=== PATIENT | male | born 1945 | race African-American/Black ===

== ENCOUNTER 2019-04-23 07:00 | Inpatient (IN) | payer MEDICARE, MEDICAID ==
[~2019-04-23] VITALS: Ht 195.6 cm; Wt 125.6 kg
[2019-04-23 08:45] LABS: CLARITY URINE CLEAR (CLEAR); COLOR URINE YELLOW (YELLOW); KETONES URINE NEGATIVE (NEGATIVE); LEUKOCYTE ESTERASE URINE TRACE (NEGATIVE); NITRITE URINE NEGATIVE (NEGATIVE); OCCULT BLOOD URINE 1+ (NEGATIVE); PH URINE 5.5 (4.5-8.0); PROTEIN URINE NEGATIVE (NEGATIVE); SPECIFIC GRAVITY URINE 1.012 (1.005-1.030)
[2019-04-23] MEDS ORDERED: TRANEXAMIC ACID 1,000 MG/10 ML IV ONE (09:45)
[2019-04-23] MEDS ORDERED: TRANEXAMIC ACID 1,000 MG in SODIUM CHLORIDE 0.9% 100 ML IV SCH (10:00)
[2019-04-23 10:35] LABS: CLARITY URINE CLEAR (CLEAR); COLOR URINE YELLOW (YELLOW); KETONES URINE NEGATIVE (NEGATIVE); LEUKOCYTE ESTERASE URINE 1+ (NEGATIVE); NITRITE URINE NEGATIVE (NEGATIVE); OCCULT BLOOD URINE 3+ (NEGATIVE); PROTEIN URINE NEGATIVE (NEGATIVE); SPECIFIC GRAVITY URINE 1.016 (1.005-1.030)
[2019-04-23] MEDS ORDERED: MIDAZOLAM HCL 2 MG/2 ML VIAL ONE (11:08)
[2019-04-23] MEDS ORDERED: FENTANYL CITRATE/PF 50MCG/ML 2ML VIAL ONE (11:08)
[2019-04-23] MEDS ORDERED: LACTATED RINGERS 500 ML IV SCH (11:35)
[2019-04-23] MEDS ORDERED: METHYLENE BLUE 50 MG/10 ML AMP IV ONE (11:59)
[2019-04-23] MEDS ORDERED: BUPIVACAINE HCL/EPINEPHRINE/PF 0.5%/0.0005 10ML ONE (11:59)
[2019-04-23] MEDS ORDERED: MORPHINE SULFATE/PF 1MG/ML 10ML AMP ONE (11:59)
[2019-04-23] MEDS ORDERED: GENTAMICIN SULF 40MG/ML 2ML VIAL ONE (12:00)
[2019-04-23] MEDS ORDERED: EPINEPHRINE 1:1000 1 MG/ML AMP ONE (12:00)
[2019-04-23] MEDS ORDERED: BACITRACIN 50,000 UNITS/VIAL ONE (12:01)
[2019-04-23] MEDS ORDERED: PROPOFOL 10MG/ML 100ML 0 ML IV ONE (12:17)
[2019-04-23] MEDS ORDERED: VANCOMYCIN HCL 1 GM/VIAL ONE (12:35)
[2019-04-23] MEDS ORDERED: PROPOFOL 200MG/20ML VIAL IV ONE ×2 (12:37→13:35)
[2019-04-23] MEDS ORDERED: ROCURONIUM BROMIDE 10MG/ML VIAL 5ML IV ONE ×2 (12:37→13:36)
[2019-04-23] MEDS ORDERED: METF-414 PO (13:30)
[2019-04-23] MEDS ORDERED: APIX5TAB PO (13:30)
[2019-04-23] MEDS ORDERED: AMLO10TA80 PO (13:30)
[2019-04-23] MEDS ORDERED: FERR325T6 PO (13:30)
[2019-04-23] MEDS ORDERED: BACL-141 PO (13:30)
[2019-04-23] MEDS ORDERED: HYDR-4009 PO (13:30)
[2019-04-23] MEDS ORDERED: CARV3.1242 PO (13:30)
[2019-04-23] MEDS ORDERED: FAMO20TA8 PO (13:30)
[2019-04-23] MEDS ORDERED: CHOL200077 PO (13:30)
[2019-04-23] MEDS ORDERED: ROSU5TAB PO (13:30)
[2019-04-23] MEDS ORDERED: VITA1TAB20 PO (13:32)
[2019-04-23] MEDS ORDERED: HYDROMORPHONE HCL/PF 2MG/ML (OR) ONE (13:37)
[2019-04-23] MEDS ORDERED: ACETAMINOPHEN 325MG TABLET PO PRN (16:45)
[2019-04-23] MEDS ORDERED: DIPHENHYDRAMINE 50MG/ML VIAL IM PRN (16:45)
[2019-04-23] MEDS ORDERED: ZOLPIDEM TARTRATE 5MG TABLET PO PRN (16:45)
[2019-04-23] MEDS ORDERED: HYDROCODONE/ACETAMINOPHEN 10/325MG TABLET PO PRN (16:45)
[2019-04-23] MEDS ORDERED: MAGNESIUM HYDROXIDE 400MG/5ML 30ML UDC PO PRN (16:45)
[2019-04-23] MEDS ORDERED: ONDANSETRON HCL 4MG/2ML INJ IV PRN (16:45)
[2019-04-23] MEDS ORDERED: ONDANSETRON INJ IV PRN (18:00)
[2019-04-23] MEDS ORDERED: NALOXONE INJ IV PRN (18:00)
[2019-04-23] MEDS ORDERED: DIPHENHYDRAMINE INJ IV PRN (18:00)
[2019-04-23] MEDS ORDERED: HYDROMORPHONE PCA 10MG/50ML IV PRN (18:00)
[2019-04-23 20:00] VITALS: BP 121/68
[2019-04-23] MEDS ORDERED: PNEUMOCOCCAL 23-VAL P-SAC VAC 0.5 ML IM ONE (20:30)
[2019-04-23 20:35] VITALS: BP 121/68
[2019-04-23] MEDS: CEFAZOLIN 2,000 MG in DEXT 5% WATER 100 ML IV SCH (23:12)
[2019-04-24] VITALS (7 sets, daily range): BP systolic 112–127; BP diastolic 63–82
[2019-04-24] MEDS: HYDROCODONE/ACETAMINOPHEN 10/325MG TABLET PO PRN ×2 (02:14→08:22)
[2019-04-24] MEDS: CEFAZOLIN 2,000 MG in DEXT 5% WATER 100 ML IV SCH (06:06)
[2019-04-24 06:50] LABS: BASOPHILS % 0.4 % (0.0-2.0); EOSINOPHILS % 1.3 % (0.0-5.0); HEMATOCRIT. 44.3 % (42.0-52.0); HEMOGLOBIN. 14.6 g/dL (14.0-18.0); LYMPHOCYTES % 13.8 % (20.0-50.0); MEAN CORPUSCULAR HEMOGLOBIN 29.9 pg (28.0-32.0); MEAN CORPUSCULAR VOLUME 90.8 fL (80.0-94.0); MEAN PLATELET VOLUME 11.6 fl (7.4-10.4); MONOCYTES % 13.3 % (2.0-8.0); NEUTROPHILS % 71.2 % (40.0-76.0); PLATELET 104 x1000/uL (130-400); RED BLOOD CELL COUNT 4.89 mill/uL (4.7-6.1); RED CELL DISTRIBUTION WIDTH 15.6 % (11.6-14.6)
[2019-04-24 07:36] LABS: CHLORIDE 110 mEq/L (98-107)
[2019-04-24] MEDS: DOCUSATE SODIUM 100MG CAPSULE PO SCH ×2 (08:26→17:26)
[2019-04-24] MEDS ORDERED: ENOXAPARIN 30MG/0.3ML SYR SUBCUT SCH (09:00)
[2019-04-24] MEDS ORDERED: SODIUM CHLORIDE 0.9% 1,000 ML IV ONE (10:30)
[2019-04-24] MEDS: AMLODIPINE 10MG TABLET PO SCH (12:30)
[2019-04-24] MEDS: METFORMIN HCL 500MG TABLET PO SCH (14:08)
[2019-04-24] MEDS: APIXABAN 5 MG TABLET PO SCH (17:27)
[2019-04-24] MEDS: BACLOFEN 10MG TABLET PO SCH (17:27)
[2019-04-24] MEDS: METOPROLOL TARTRATE 25MG TABLET PO SCH (20:59)
[2019-04-24] MEDS ORDERED: CARVEDILOL 3.125 MG TABLET PO SCH (21:00)
[2019-04-24] MEDS ORDERED: DEXTROSE 50% WATER 50ML SYRINGE IV PRN (23:45)
[2019-04-25] VITALS (7 sets, daily range): BP systolic 94–140; BP diastolic 56–83
[2019-04-25] MEDS: HYDROCODONE/ACETAMINOPHEN 10/325MG TABLET PO PRN ×3 (04:14→15:40)
[2019-04-25] MEDS: BLOOD SUGAR DIAGNOSTIC STRIP TEST SCH ×4 (06:45→21:51)
[2019-04-25] MEDS: INSULIN LISPRO 100 UNITS/ML SUBCUT SCH ×4 (07:15→21:00)
[2019-04-25] MEDS: METOPROLOL TARTRATE 25MG TABLET PO SCH ×3 (08:20→21:00)
[2019-04-25] MEDS: AMLODIPINE 10MG TABLET PO SCH (08:22)
[2019-04-25] MEDS: DOCUSATE SODIUM 100MG CAPSULE PO SCH ×2 (09:14→17:25)
[2019-04-25] MEDS: FAMOTIDINE 20MG TABLET PO SCH (09:15)
[2019-04-25] MEDS: APIXABAN 5 MG TABLET PO SCH ×2 (09:15→17:25)
[2019-04-25] MEDS: METFORMIN HCL 500MG TABLET PO SCH (09:15)
[2019-04-25] MEDS: BACLOFEN 10MG TABLET PO SCH ×2 (09:15→17:25)
[2019-04-25 09:44] LABS: HEMOGLOBIN. 12.7 g/dL (14.0-18.0); MEAN CORPUSCULAR HEMOGLOBIN 29.4 pg (28.0-32.0); MEAN CORPUSCULAR VOLUME 89.9 fL (80.0-94.0); MEAN PLATELET VOLUME 11.4 fl (7.4-10.4); PLATELET 86 x1000/uL (130-400); RED BLOOD CELL COUNT 4.34 mill/uL (4.7-6.1); RED CELL DISTRIBUTION WIDTH 15.7 % (11.6-14.6)
[2019-04-25 13:50] LABS: PLATELET ESTIMATE DECREASED
[2019-04-26] VITALS: BP_SYST 105; BP_SYST 139; BP_DIAS 65; BP_DIAS 73
[2019-04-26] MEDS: METOPROLOL TARTRATE 25MG TABLET PO SCH ×2 (02:30→08:20)
[2019-04-26 04:00] VITALS: BP 114/70
[2019-04-26] MEDS: BLOOD SUGAR DIAGNOSTIC STRIP TEST SCH ×2 (05:58→12:32)
[2019-04-26] MEDS: INSULIN LISPRO 100 UNITS/ML SUBCUT SCH ×2 (06:03→12:15)
[2019-04-26 07:53] LABS: HEMATOCRIT. 35.5 % (42.0-52.0); HEMOGLOBIN. 11.7 g/dL (14.0-18.0); MEAN CORPUSCULAR HEMOGLOBIN 29.7 pg (28.0-32.0); MEAN CORPUSCULAR VOLUME 90.1 fL (80.0-94.0); MEAN PLATELET VOLUME 11.8 fl (7.4-10.4); PLATELET 88 x1000/uL (130-400); RED BLOOD CELL COUNT 3.94 mill/uL (4.7-6.1); RED CELL DISTRIBUTION WIDTH 15.3 % (11.6-14.6)
[2019-04-26] MEDS: BACLOFEN 10MG TABLET PO SCH ×2 (07:58→16:21)
[2019-04-26] MEDS: APIXABAN 5 MG TABLET PO SCH ×2 (07:58→16:21)
[2019-04-26] MEDS: FAMOTIDINE 20MG TABLET PO SCH (07:58)
[2019-04-26] MEDS: DOCUSATE SODIUM 100MG CAPSULE PO SCH ×2 (07:58→16:21)
[2019-04-26] MEDS: METFORMIN HCL 500MG TABLET PO SCH (07:58)
[2019-04-26] MEDS: HYDROCODONE/ACETAMINOPHEN 10/325MG TABLET PO PRN ×2 (07:59→16:21)
[2019-04-26 08:00] VITALS: BP 121/78
[2019-04-26 08:53] LABS: CHLORIDE 109 mEq/L (98-107)
[2019-04-26 12:00] VITALS: BP 122/77
[2019-04-26 16:00] VITALS: BP 115/69
[2019-04-26 16:21] VITALS: BP 122/77
[2019-04-26 22:43] LABS: PLATELET ESTIMATE DECREASED
== END 2019-04-26 17:15 | disposition home health service (06) | DRG 302 ==
LOC: OR 07:00 → 5WST 19:35
PROVIDERS: ADMIT Internal Medicine; ATTEND Internal Medicine
PROC: 0SRD0J9 Replacement of Left Knee Joint with Synthetic Substitute, Cemented, Open Approach (ICD-10-PCS; principal; 2019-04-23)
DX: M17.12 Unilateral primary osteoarthritis, left knee (principal); D69.6 Thrombocytopenia, unspecified; E11.22 Type 2 diabetes mellitus with diabetic chronic kidney disease; I48.20 Chronic atrial fibrillation, unspecified; E78.5 Hyperlipidemia, unspecified; M65.88 Other synovitis and tenosynovitis, other site; I12.9 Hypertensive chronic kidney disease with stage 1 through stage 4 chronic kidney disease, or unspecified chronic kidney disease; I95.1 Orthostatic hypotension; M21.162 Varus deformity, not elsewhere classified, left knee; N18.9 Chronic kidney disease, unspecified; Z86.718 Personal history of other venous thrombosis and embolism; I69.354 Hemiplegia and hemiparesis following cerebral infarction affecting left non-dominant side; Z79.01 Long term (current) use of anticoagulants; Z82.49 Family history of ischemic heart disease and other diseases of the circulatory system; Z79.899 Other long term (current) drug therapy; Z91.041 Radiographic dye allergy status
CPT/HCPCS: 36415; 72052; 73560; 80048; 81003; 82962; 85025; 86850; 86900; 88305; 88311; 90732; 93005; 93970; 97110; 97116; 97162; 97166; 97530; 97535; C1713; C1776; J0171; J0690; J1170; J1580; J1815; J2250; J2274; J2704; J3010; J3370; J3490; J7050; J7060; L1830; Q9968